=== PATIENT | male | born 1965 | race Caucasian/White ===

== ENCOUNTER 2018-11-20 10:39 | Day surgery (SDC) | payer OTHER ==
[2018-11-20] MEDS ORDERED: Lactated Ringers 1,000 ML IV SCH (10:45)
[2018-11-20] MEDS ORDERED: Sodium Chloride 0.9% 10 ML Syringe FLUSH PRN (10:45)
[2018-11-20] MEDS ORDERED: Propofol 200 MG/20 ML SDV IV ONE (12:00)
[2018-11-20] MEDS ORDERED: Midazolam 1 MG/ML 2 ML SDV IV ONE (12:00)
[2018-11-20] MEDS ORDERED: Propofol 200 MG/20 ML SDV ONE (12:04)
[2018-11-20] MEDS ORDERED: Midazolam 1 MG/ML 2 ML SDV ONE (12:04)
--- NOTE | 2018-11-20 12:06 | PCM.PN ---
- General Info Date of Service: 11/20/18 - Review of Systems Systems Review Comment:: 53-year-old male presents today for surveillance colonoscopy. He has a history of colon polyps last removed 3 years ago. He is medically stable to proceed today. His recent history and physical is reviewed and no significant changes are noted. I have discussed the proposed colonoscopy with the patient. He agrees to proceed accepting risks. - Patient Data Vitals - Most Recent: Last Vital Signs Temp 97.4 F 11/20/18 10:45 Pulse 73 11/20/18 10:45 Resp 20 11/20/18 10:45 BP 140/84 11/20/18 10:45 Pulse Ox 100 11/20/18 10:45 Weight - Most Recent: 78.018 kg Med Orders - Current: Current Medications Lactated Ringer's (Ringers, Lactated) 1,000 mls @ 50 mls/hr IV ASDIRECTED [facility] Last Admin: 11/20/18 11:33 Dose: 50 mls/hr Sodium Chloride (Saline Flush) 10 ml FLUSH Q8HR PRN PRN Reason: keep vein open - Problem List Review Problem List Initiated/Reviewed/Updated: Yes - My Orders Last 24 Hours: My Active Orders 11/19/18 14:26 Resuscitation Status Routine 11/20/18 10:45 Patient to Empty Bladder [RC] ASDIRECTED Peripheral IV Care [RC] . DIRECTED Vital Signs [RC] PER UNIT ROUTINE Lactated Ringers [Ringers, Lactated] 1,000 ml IV ASDIRECTED Sodium Chloride 0.9% [Saline Flush] 10 ml FLUSH Q8HR PRN Peripheral IV Insertion Adult [OM.PC] Routine 11/20/18 12:00 Verify Patient Consent Obtain [RC] ASDIRECTED 11/20/18 Breakfast Nothing Per Oral Diet [DIET] - Assessment Assessment:: History of colon polyps - Plan Plan:: Colonoscopy
--- NOTE | 2018-11-20 12:41 | PCM.OPNOTE ---
- General Post-Op/Procedure Note Date of Surgery/Procedure: 11/20/18 Operative Procedure(s): Colonoscopy with polypectomy Findings: 3 small colon polyps exam otherwise normal Pre Op Diagnosis: History of Colon Polyps Post-Op Diagnosis: Colon Polyps Anesthesia Technique: MAC Primary Surgeon: Emeka Dee Pathology: Colon Polyps Output, Urine Amount: 0 EBL in mLs: 4 Complications: None Condition: Good
[2018-11-20 13:34] VITALS: BP 114/86
--- NOTE | 2018-11-20 17:50 | OR ---
DATE OF SURGERY: 11/20/2018 SURGEON: Emeka Dee MD PREOPERATIVE DIAGNOSIS: History of colon polyps. POSTOPERATIVE DIAGNOSIS: Colon polyps. OPERATION PERFORMED: Colonoscopy with polypectomy. INDICATIONS FOR SURGERY: This 53-year-old male has a history of colon polyps and he comes today for surveillance colonoscopy. FINDINGS: Three small polyps are noted on today's exam. One is in the rectum 12 cm from the anal verge, another is in the cecum, and the third is in the ascending colon. These polyps range in size from 4 to 6 mm in size. They were all sessile in configuration. The remainder of the colon and rectum appear normal. DESCRIPTION OF PROCEDURE: The patient was taken to the operating room. He was given intravenous sedation and with him in the left lateral decubitus position, digital rectal exam was performed showing no rectal masses. The Olympus colonoscope was inserted into the rectum. Retroflexed examination of the rectal canal is performed. The scope was then carefully advanced under direct visualization through the entire length of the colon until the cecum is reached. Cecal acquisition is confirmed by noting the normal internal cecal anatomy including the appendiceal orifice and ileocecal valve. The light was also noted to transilluminate the abdominal wall in the right lower quadrant. After examining the cecum, the scope was slowly withdrawn, sequentially re-examining the colonic segments until the entire colon and rectum had been fully examined. During insertion and withdrawal of the scope, the above-described polyps are identified. At each of these three locations, the polyp was removed grossly in its entirety with the cold biopsy forceps. No sign of any complication was noted at any of these locations and each of the polyps was retrieved and will be submitted for pathology. Once the exam had been completed and with no sign of any complication, the scope was removed and the patient was taken from the operating room in satisfactory condition. ESTIMATED BLOOD LOSS: 4 mL. COMPLICATIONS: None. PROGNOSIS: Good. /[id number]/MODL MTDD
== END 2018-11-20 14:40 | disposition home or self-care (01) ==
LOC: KA.SDS 10:39
PROVIDERS: ATTEND Surgery
DX: Z12.11 Encounter for screening for malignant neoplasm of colon (principal); D12.0 Benign neoplasm of cecum; D12.2 Benign neoplasm of ascending colon; K62.1 Rectal polyp; F17.200 Nicotine dependence, unspecified, uncomplicated; I10 Essential (primary) hypertension; E78.5 Hyperlipidemia, unspecified; Z86.010 Personal history of colon polyps
CPT/HCPCS: 00812; J2250; J2704; J7120

== ENCOUNTER 2019-03-28 16:10 | Emergency (ER) | payer OTHER ==
[2019-03-28 16:20] VITALS: BP 124/74
--- NOTE | 2019-03-28 16:59 | EDM.PDOC ---
ED HPI GENERAL MEDICAL PROBLEM - General Chief Complaint: Bite:Animal, Insect Stated Complaint: REACTING TO WOOD TICK BITE Time Seen by Provider: 03/28/19 16:43 Source of Information: Reports: Patient History Limitations: Reports: No Limitations - History of Present Illness INITIAL COMMENTS - FREE TEXT/NARRATIVE: Patient is a 53-year-old gentleman who presents to the emergency department this afternoon with a complaint of redness on right chest secondary to tick bite 2 days ago. Patient states that he removed the tick with tweezers on Monday, was able to remove tick head, and redness was noticed last night and worsened today. Patient denies shortness of breath, rash anywhere else, tongue edema, or fever. Onset: Gradual Onset Date: 03/26/19 Duration: Day(s):, Getting Worse Location: Reports: Chest Quality: Reports: Ache Severity: Mild Improves with: Reports: None Worsens with: Reports: None Context: Reports: Other (Insect bite) Right Breast Pain Score (Numeric/FACES): 2 - Related Data Allergies Allergy/AdvReac Type Severity Reaction Status Date / Time No Known Drug Allergies Allergy NKDA Verified 03/28/19 16:20 Home Meds: Home Meds Lisinopril [Prinivil] 20 mg PO DAILY 02/12/16 [History] atorvaSTATin Calcium [Atorvastatin Calcium] 20 mg PO DAILY 02/12/16 [History] Doxycycline [Vibramycin] 100 mg PO BID #28 cap 03/28/19 [Rx] Past Medical History - Past Health History Medical/Surgical History: Denies Medical/Surgical History HEENT History: Reports: Impaired Vision Cardiovascular History: Reports: High Cholesterol, Hypertension Gastrointestinal History: Reports: None Musculoskeletal History: Reports: Back Pain, Chronic, Fracture Neurological History: Reports: None Psychiatric History: Reports: None - Infectious Disease History Infectious Disease History: Reports: Chicken Pox - Past Surgical History Cardiovascular Surgical History: Reports: None GI Surgical History: Reports: Appendectomy, Colonoscopy Neurological Surgical History: Reports: Thoracic Spine Musculoskeletal Surgical History: Reports: None Social & Family History - Family History Cardiac: Reports: Other (See Below) Other Cardiac Family History: hypotension Endocrine/Metabolic: Reports: Diabetes, type II - Tobacco Use Smoking Status *Q: Current Every Day Smoker Years of Tobacco use: 32 Packs/Tins Daily: 0.5 - Caffeine Use Caffeine Use: Reports: Coffee, Soda Other Caffeine Use: regular - Recreational Drug Use Recreational Drug Use: No ED ROS GENERAL - Review of Systems Review Of Systems: ROS reveals no pertinent complaints other than HPI. Constitutional: Reports: No Symptoms. Denies: Fever HEENT: Reports: No Symptoms Respiratory: Reports: No Symptoms Cardiovascular: Reports: No Symptoms Endocrine: Reports: No Symptoms GI/Abdominal: Reports: No Symptoms : Reports: No Symptoms Musculoskeletal: Reports: No Symptoms Skin: Reports: Rash, Erythema (Right chest) Neurological: Reports: No Symptoms Psychiatric: Reports: No Symptoms Hematologic/Lymphatic: Reports: No Symptoms Immunologic: Reports: No Symptoms ED EXAM, ANIMAL BITE - Physical Exam Exam: See Below Exam Limited By: No Limitations General Appearance: Alert, WD/WN, No Apparent Distress Eye Exam: Bilateral Eye: Normal Inspection Nose: Normal Inspection Throat/Mouth: Normal Inspection, Normal Lips, Normal Oropharynx, No Airway Compromise. No: Inflammation Head: Atraumatic, Normocephalic Neck: Normal Inspection. No: Lymphadenopathy (L), Lymphadenopathy (R) Respiratory/Chest: No Respiratory Distress, Lungs Clear, Normal Breath Sounds, No Accessory Muscle Use Cardiovascular: Regular Rate, Rhythm, No Murmur Extremities: Normal Inspection Neurological: Alert, Oriented, Normal Cognition Psychiatric: Normal Affect, Normal Mood Skin Exam: Normal Color, Warm/Dry, Rash (At right mid chest, surrounding nipple) Lymphadenopathy: Bilateral: No Adenopathy Lymphatic: No Adenopathy Course - Vital Signs Last Recorded V/S: Last Vital Signs Temp 97.7 F 03/28/19 16:17 Pulse 82 03/28/19 16:17 Resp 14 03/28/19 16:17 BP 124/74 03/28/19 16:17 Pulse Ox 96 03/28/19 16:17 - Re-Assessments/Exams Free Text/Narrative Re-Assessment/Exam: 03/28/19 16:58 Patient afebrile, vital signs stable. Concern for possible Lyme disease. Patient given 100 mg doxycycline twice a day for 14 days. We'll recheck in 2 days. Departure - Departure Time of Disposition: 16:59 Disposition: Home, Self-Care 01 Condition: Good Clinical Impression: Tick bite of chest wall Qualifiers: Encounter type: initial encounter Laterality: right Qualified Code(s): S20.361A - Insect bite (nonvenomous) of right front wall of thorax, initial encounter; W57.XXXA - Bitten or stung by nonvenomous insect and other nonvenomous arthropods, initial encounter - Discharge Information Prescriptions: Doxycycline [Vibramycin] 100 mg PO BID #28 cap Instructions: Tick Bite Information, Adult, [id number] Referrals: Carmen Dallas MD [Primary Care Provider] - Additional Instructions: Follow-up with Dr. Rascon in 24-48 hours for recheck. Return to emergency room sooner if symptoms continue or worsen. Take medication as directed - Assessment/Plan Assessment:: Insect bite Plan: Follow-up with PCP
== END 2019-03-28 17:10 | disposition home or self-care (01) ==
LOC: KA.ED 16:10
DX: S20.361A Insect bite (nonvenomous) of right front wall of thorax, initial encounter (principal); I10 Essential (primary) hypertension; E78.00 Pure hypercholesterolemia, unspecified; F17.210 Nicotine dependence, cigarettes, uncomplicated; Z79.899 Other long term (current) drug therapy; W57.XXXA Bitten or stung by nonvenomous insect and other nonvenomous arthropods, initial encounter
CPT/HCPCS: 99282; 99283

== ENCOUNTER 2021-01-09 18:26 | Emergency (ER) | payer OTHER ==
[2021-01-09 18:43] VITALS: BP 118/81; PULSE 110
[2021-01-09 19:09] LABS: ANION GAP 19.4 mmol/L (5-15); CHLORIDE,CL 99 mmol/L (98-107); SODIUM,NA 134 mmol/L (136-145)
[2021-01-09] MEDS ORDERED: Ketorolac 30 MG/ML SDV IM ONE (19:29)
[2021-01-09] MEDS ORDERED: cefTRIAXone 2 GM Vial IVPUSH ONE (19:30)
[2021-01-09] MEDS ORDERED: Sodium Chloride 0.9% 1,000 ML IV ONE (19:31)
[2021-01-09] MEDS ORDERED: Acetaminophen 500 MG Tab PO ONE (19:40)
[2021-01-09] MEDS ORDERED: Acetaminophen 500 MG Tab ONE (20:01)
[2021-01-09] MEDS ORDERED: Ciprofloxacin 500 MG Tab PO SCH (21:00)
[2021-01-09] MEDS ORDERED: Tamsulosin 0.4 MG Cap.ER PO ONE (21:00)
--- NOTE | 2021-01-09 21:03 | EDM.PDOC ---
ED HPI GENERAL MEDICAL PROBLEM - General Chief Complaint: Genitourinary Problem Stated Complaint: UTI? KIDNEY STONE? Time Seen by Provider: 01/09/21 18:30 Source of Information: Reports: Patient History Limitations: Reports: No Limitations - History of Present Illness INITIAL COMMENTS - FREE TEXT/NARRATIVE: 55-year-old male presents to the emergency room with symptoms of feeling pain with a urinating. Initially started feeling some fatigue and chills after work on . Chills started about 3 PM and he felt that they ended later that night around 1030. Monday and today began experiencing pain with urination. He reports urgency frequency and noticed some blood in his urine today. If he is not trying to urinate he reports no pain with urination he reports his pain is a 7 out of 10. He denies any significant fever or chills but upon arrival his temperature is 100. He denies any abdominal pain. Is any low back pain, perineal, suprapubic or testicular pain. Neuralgia or myalgia complaints. He is not have any nausea or vomiting complaints. He denies increased pain with bowel movement. He reports his oral intake has been poor over the last couple of days. His primary care is Dr. Carmen Rascon. He is otherwise fairly healthy gentleman reports only history of high blood pressure and hypercholesterol. He takes medications for both of these. Onset: Gradual Onset Date: 01/07/21 Duration: Day(s):, Getting Worse, Recurring (With urination) Location: Reports: Pelvis Quality: Reports: Ache, Pressure Severity: Moderate Improves with: Reports: Rest Worsens with: Reports: Other (Worsens with urination) Associated Symptoms: Reports: Fever/Chills, Malaise. Denies: Nausea/Vomiting - Related Data Allergies Allergy/AdvReac Type Severity Reaction Status Date / Time No Known Drug Allergies Allergy NKDA Verified 01/09/21 18:44 Home Meds: Home Meds Lisinopril [Prinivil] 20 mg PO BEDTIME 02/12/16 [History] atorvaSTATin Calcium [Atorvastatin Calcium] 20 mg PO BEDTIME 02/12/16 [History] Past Medical History - Past Health History Medical/Surgical History: Denies Medical/Surgical History HEENT History: Reports: Impaired Vision Cardiovascular History: Reports: High Cholesterol, Hypertension Gastrointestinal History: Reports: None Musculoskeletal History: Reports: Back Pain, Chronic, Fracture Neurological History: Reports: None Psychiatric History: Reports: None - Infectious Disease History Infectious Disease History: Reports: Chicken Pox - Past Surgical History HEENT Surgical History: Reports: Oral Surgery Cardiovascular Surgical History: Reports: None GI Surgical History: Reports: Appendectomy, Colonoscopy Neurological Surgical History: Reports: Thoracic Spine Musculoskeletal Surgical History: Reports: None Social & Family History - Family History Cardiac: Reports: Other (See Below) Other Cardiac Family History: hypotension Endocrine/Metabolic: Reports: Diabetes, type II - Tobacco Use Tobacco Use Status *Q: Current Every Day Tobacco User Years of Tobacco use: 30 Packs/Tins Daily: 0.5 - Caffeine Use Caffeine Use: Reports: Coffee Other Caffeine Use: regular - Recreational Drug Use Recreational Drug Use: No ED ROS GENERAL - Review of Systems Review Of Systems: See Below Constitutional: Reports: Fever, Chills, Malaise, Fatigue HEENT: Reports: No Symptoms Respiratory: Reports: No Symptoms Cardiovascular: Reports: No Symptoms Endocrine: Reports: No Symptoms GI/Abdominal: Denies: Abdominal Pain, Constipation, Diarrhea, Distension, Nausea, Vomiting : Reports: Dysuria, Frequency, Hematuria, Pain, Urgency. Denies: Discharge, Flank Pain Musculoskeletal: Reports: No Symptoms Skin: Reports: No Symptoms Neurological: Reports: No Symptoms Psychiatric: Reports: No Symptoms Hematologic/Lymphatic: Reports: No Symptoms Immunologic: Reports: No Symptoms ED EXAM, GI/ABD - Physical Exam Exam: See Below Exam Limited By: No Limitations General Appearance: Alert, WD/WN, No Apparent Distress Eyes: Bilateral: EOMI Ears: Hearing Grossly Normal Nose: Normal Inspection Throat/Mouth: Normal Inspection, Normal Voice, No Airway Compromise Head: Atraumatic, Normocephalic Neck: Normal Inspection, Supple Respiratory/Chest: No Respiratory Distress, Lungs Clear, Normal Breath Sounds Cardiovascular: Normal Peripheral Pulses, Regular Rate, Rhythm GI/Abdominal Exam: Normal Bowel Sounds, Soft, Non-Tender, No Organomegaly, No Distention (Male) Exam: Normal Inspection, Circumcised, Suprapubic Fullness. No: Penile Lesions, Rash, Scrotal Swelling, Scrotum Tenderness (L), Scrotum Tenderness (R), Testicular Mass, Testicular Tenderness (L), Testicular Tenderness (R), Urethral Discharge Rectal (Males) Exam: Tenderness (Prostate). No: Decreased Rectal Tone, Hemorrhoids, Perirectal Abscess Back Exam: Normal Inspection, Full Range of Motion Extremities: Normal Inspection, Normal Range of Motion, Non-Tender, No Pedal Edema, Normal Capillary Refill Neurological: Alert, Oriented, CN II-XII Intact, No Motor/Sensory Deficits Psychiatric: Normal Affect, Normal Mood Skin Exam: Warm, Dry, Intact, Normal Color, No Rash Course - Vital Signs Last Recorded V/S: Last Vital Signs Temp 99 F 01/09/21 20:30 Pulse 110 H 01/09/21 18:40 Resp 18 01/09/21 18:40 BP 118/81 01/09/21 18:40 Pulse Ox 95 01/09/21 18:40 - Orders/Labs/Meds Orders: Active Orders 24 hr Category Date Time Status Bladder Scan [RC] ASDIRECTED Care 01/09/21 19:33 Active CULTURE URINE [RM] Stat Lab 01/09/21 19:12 Ordered Ciprofloxacin [Ciprofloxacin HCl] Med 01/09/21 21:00 Active 1,500 mg PO ASDIRECTED Medication Orders Ciprofloxacin (Ciprofloxacin 500 Mg Tab) 1,500 mg PO ASDIRECTED [facility] Last Admin: 01/09/21 21:06 Dose: Not Given Documented by: HARRY Labs: Laboratory Tests 01/09/21 01/09/21 01/09/21 Range/Units 18:30 18:40 18:40 WBC 9.95 (5.00-10.00) 10^3/uL RBC 4.61 (4.50-6.00) 10^6/uL Hgb 15.5 (13.0-17.0) g/dL Hct 44.1 (40.0-52.0) % MCV 95.7 H (82.0-92.0) fL MCH 33.6 H (27.0-31.0) pg MCHC 35.1 (32.0-36.0) g/dL RDW 12.7 (11.5-14.5) % Plt Count 204 (150-400) 10^3/uL MPV 9.5 (7.4-10.4) fL Immature Gran % (Auto) 0.3 (0.0-5.0) % Neut % (Auto) 76.7 H (50.0-70.0) % Lymph % (Auto) 10.6 L (20.0-40.0) % Isabela % (Auto) 11.5 H (2.0-8.0) % Eos % (Auto) 0.8 L (1.0-3.0) % Baso % (Auto) 0.1 (0.0-1.0) % Neut # (Auto) 7.64 H (2.50-7.00) 10^3/uL Lymph # (Auto) 1.05 (1.00-4.00) 10^3/uL Isabela # (Auto) 1.14 H (0.10-0.80) 10^3/uL Eos # (Auto) 0.08 L (0.10-0.30) 10^3/uL Baso # (Auto) 0.01 (0.00-0.10) 10^3/uL Immature Gran # (Auto) 0.03 (0.00-0.50) 10^3/uL Sodium 134 L (136-145) mmol/L Potassium 3.9 (3.5-5.1) mmol/L Chloride 99 (98-107) mmol/L Carbon Dioxide 19.5 L (21.0-32.0) mmol/L Anion Gap 19.4 H (5-15) mmol/L BUN 9 (7-18) mg/dL Creatinine 0.69 (0.51-1.17) mg/dL Est Cr Clr Drug Dosing 134.22 mL/min Estimated GFR (MDRD) > 60 mL/min Glucose 113 (70-140) mg/dL Calcium 8.9 (8.7-10.3) mg/dL Total Bilirubin 1.1 H (0.2-1.0) mg/dL AST 41 H (15-37) U/L ALT 74 H (14-63) U/L Alkaline Phosphatase 173 H (46-116) U/L Total Protein 7.3 (6.4-8.2) g/dL Albumin 3.36 L (3.40-5.00) g/dL Specimen Type Urincc Urine Color Dark yellow H (YELLOW) Urine Appearance Clear (CLEAR) Urine pH 5.5 (5.0-9.0) Ur Specific [place] >= 1.030 (1.005-1.030) Urine Protein >=300 H (NEGATIVE) mg/dL Urine Glucose (UA) Negative (NEGATIVE) mg/dL Urine Ketones 15 H (NEGATIVE) mg/dL Urine Occult Blood Large H (NEGATIVE) Urine Nitrite Negative (NEGATIVE) Urine Bilirubin Moderate H (NEGATIVE) Urine Urobilinogen 2.0 H (0.2-1.0) E.U./dL Ur Leukocyte Esterase Trace H (NEGATIVE) Urine RBC Packed (0-5) /HPF Urine WBC >100 H (0-5) /HPF Ur Epithelial Cells Rare /LPF Urine Bacteria Moderate H (NONE TO FEW) /HPF Meds: Medications Generic Name Dose Route Start Last Admin Trade Name Freq PRN Reason Stop Dose Admin Ciprofloxacin 1,500 mg 01/09/21 21:00 01/09/21 21:06 Ciprofloxacin 500 Mg Tab PO Not Given ASDIRECTED [facility]ANCI Discontinued Medications Generic Name Dose Route Start Last Admin Trade Name Freq PRN Reason Stop Dose Admin Acetaminophen 1,000 mg 01/09/21 19:40 01/09/21 20:00 Acetaminophen 500 Mg Tab PO 01/09/21 19:41 1,000 mg ONETIME ONE Administration Acetaminophen Confirm 01/09/21 20:01 01/09/21 20:06 Acetaminophen 500 Mg Tab Administered 01/09/21 20:02 Not Given Dose 500 mg .ROUTE .STK-MED ONE Ceftriaxone Sodium 2 gm 01/09/21 19:30 01/09/21 20:02 Ceftriaxone 2 Gm Vial IVPUSH 01/09/21 19:31 2 gm ONETIME ONE Administration Sodium Chloride 1,000 mls @ 1,000 mls/hr 01/09/21 19:31 01/09/21 19:48 Normal Saline IV 01/09/21 20:30 1,000 mls/hr .BOLUS ONE Administration Ketorolac Tromethamine 60 mg 01/09/21 19:29 01/09/21 19:49 Ketorolac 30 Mg/Ml Sdv IM 01/09/21 19:30 60 mg ONETIME ONE Administration Tamsulosin HCl 1.2 mg 01/09/21 21:00 01/09/21 21:06 Tamsulosin 0.4 Mg Cap.Er PO 01/09/21 21:01 Not Given ONETIME ONE - Re-Assessments/Exams Free Text/Narrative Re-Assessment/Exam: 01/09/21 21:29 Patient was given 1 L IV fluids, 1 g Rocephin, 30 IM of Toradol. Patient felt better after completion of fluids and medication of Toradol. Departure - Departure Time of Disposition: 21:29 Disposition: Home, Self-Care 01 Condition: Good Clinical Impression: Prostatitis - Discharge Information Instructions: Prostatitis Referrals: Carmen Dallas MD [Primary Care Provider] - Forms: ED Department Discharge Care Plan Goals: 1. Cipro 500 mg 1 p.o. twice daily for 21 days 2. Tamsulosin 0.4mg daily 30 minutes after a meal. 3. Ibuprofen 800 mg 3 times daily with meals for 10 days 4. Follow-up Dr. Carmen Rascon next week. 5. Oral hydration is encouraged. Sepsis Event Note (ED) - Evaluation Sepsis Screening Result: No Definite Risk - Focused Exam Vital Signs: Vital Signs Temp Temp Pulse Resp BP Pulse Ox 01/09/21 20:30 99 F 01/09/21 20:00 100 F 01/09/21 18:40 100.0 F 110 H 18 118/81 95 - My Orders Last 24 Hours: My Active Orders 01/09/21 19:12 CULTURE URINE [RM] Stat 01/09/21 19:33 Bladder Scan [RC] ASDIRECTED 01/09/21 21:00 Ciprofloxacin [Ciprofloxacin HCl] 1,500 mg PO ASDIRECTED - Assessment/Plan Last 24 Hours: My Active Orders 01/09/21 19:12 CULTURE URINE [RM] Stat 01/09/21 19:33 Bladder Scan [RC] ASDIRECTED 01/09/21 21:00 Ciprofloxacin [Ciprofloxacin HCl] 1,500 mg PO ASDIRECTED Assessment:: Acute prostatitis Plan: 1. Cipro 500 mg 1 p.o. twice daily for 21 days 2. Tamsulosin 0.4mg daily 30 minutes after a meal. 3. Ibuprofen 800 mg 3 times daily with meals for 10 days 4. Follow-up Dr. Carmen Rascon next week. 5. Oral hydration is encouraged.
== END 2021-01-09 21:20 | disposition home or self-care (01) ==
LOC: KA.ED 18:26
DX: N41.9 Inflammatory disease of prostate, unspecified (principal); E78.00 Pure hypercholesterolemia, unspecified; I10 Essential (primary) hypertension; Z79.899 Other long term (current) drug therapy; Z72.0 Tobacco use
CPT/HCPCS: 36415; 51798; 80053; 81001; 85025; 87086; 87186; 96372; 96374; 99283-25; 99284; A9270-GY; J0696; J1885; J7030

== ENCOUNTER 2022-01-11 10:05 | Day surgery (SDC) | payer OTHER ==
[2022-01-11] MEDS ORDERED: Sodium Chloride 0.9% 10 ML Syringe FLUSH PRN (10:15)
[2022-01-11] MEDS: Lactated Ringers 1,000 ML IV SCH (10:45)
[2022-01-11] MEDS ORDERED: Midazolam 1 MG/ML 2 ML SDV IV ONE (11:00)
[2022-01-11] MEDS ORDERED: Propofol 200 MG/20 ML SDV IV ONE (11:00)
[2022-01-11 13:02] VITALS: BP 109/75; PULSE 65
== END 2022-01-11 13:45 | disposition home or self-care (01) ==
LOC: KA.SDS 10:05
PROVIDERS: ATTEND Surgery
DX: Z12.11 Encounter for screening for malignant neoplasm of colon (principal); D12.0 Benign neoplasm of cecum; D12.4 Benign neoplasm of descending colon; H93.19 Tinnitus, unspecified ear; F17.210 Nicotine dependence, cigarettes, uncomplicated; E78.5 Hyperlipidemia, unspecified; I10 Essential (primary) hypertension; Z79.899 Other long term (current) drug therapy; Z90.49 Acquired absence of other specified parts of digestive tract; Z98.890 Other specified postprocedural states
CPT/HCPCS: 00812; J2250; J2704; J7120

== ENCOUNTER 2023-09-12 00:22 | Emergency (ER) | payer OTHER ==
[2023-09-12] MEDS ORDERED: Acetaminophen 500 MG Tab PO ONE (00:36)
[2023-09-12] MEDS ORDERED: Ketorolac 30 MG/ML SDV IM ONE (00:36)
[2023-09-12 01:02] LABS: BASOPHILS ABSOLUTE AUTO 0.01 10^3/uL (0.00-0.10); BASOPHILS PERCENT AUTO 0.2 % (0.0-1.0); EOSINOPHILS ABSOLUTE AUTO 0.08 10^3/uL (0.10-0.30); HEMATOCRIT 44.3 % (40.0-52.0); HEMOGLOBIN 15.1 g/dL (13.0-17.0); IMMATURE GRAN ABSOLUTE AUTO 0.02 10^3/uL (0.00-0.50); IMMATURE GRAN PERCENT AUTO 0.5 % (0.0-5.0); LYMPHOCYTES ABSOLUTE AUTO 0.24 10^3/uL (1.00-4.00); LYMPHOCYTES PERCENT AUTO 5.9 % (20.0-40.0); MEAN CORPUSCULAR HGB CONC 34.1 g/dL (32.0-36.0); MEAN CORPUSCULAR VOLUME 96.9 fL (82.0-92.0); MEAN PLATELET VOLUME 9.5 fL (7.4-10.4); MONOCYTES ABSOLUTE AUTO 0.57 10^3/uL (0.10-0.80); NEUTROPHILS ABSOLUTE AUTO 3.15 10^3/uL (2.50-7.00); NEUTROPHILS PERCENT AUTO 77.4 % (50.0-70.0); PLATELET COUNT,PLT 227 10^3/uL (150-400); RED BLOOD CELL COUNT 4.57 10^6/uL (4.50-6.00); RED CELL DISTRIBUTION WIDTH 12.8 % (11.5-14.5); WHITE BLOOD CELL COUNT,WBC 4.07 10^3/uL (5.00-10.00)
[2023-09-12 01:15] LABS: ALBUMIN 3.66 g/dL (3.40-5.00); ANION GAP 10.4 mmol/L (5-15); BILIRUBIN TOTAL 0.5 mg/dL (0.2-1.0); CALCIUM 8.8 mg/dL (8.7-10.3); CARBON DIOXIDE,CO2 28.8 mmol/L (21.0-32.0); CREATININE 0.67 mg/dL (0.51-1.17); EST CRCL DRUG DOSING (CG) 129.48 mL/min; POTASSIUM,K 4.2 mmol/L (3.5-5.1); PROTEIN TOTAL,TP 6.7 g/dL (6.4-8.2)
[2023-09-12 01:27] LABS: INFLUENZA A NAA NEGATIVE (NEGATIVE); INFLUENZA B NAA NEGATIVE (NEGATIVE); RESPIRATORY SYNCYTIAL VIR NAA NEGATIVE (NEGATIVE)
[2023-09-12 01:28] LABS: CORONAVIRUS COVID-19 NAA POSITIVE (NEGATIVE)
[2023-09-12 01:46] VITALS: BP 118/74; PULSE 95
== END 2023-09-12 01:56 | disposition home or self-care (01) ==
LOC: KA.ED 00:22
DX: U07.1 COVID-19 (principal); M54.50 Low back pain, unspecified; M25.551 Pain in right hip; M25.552 Pain in left hip; G89.29 Other chronic pain; J32.1 Chronic frontal sinusitis; I10 Essential (primary) hypertension; E78.00 Pure hypercholesterolemia, unspecified; Z90.49 Acquired absence of other specified parts of digestive tract
CPT/HCPCS: 0241U; 36415; 71046; 80053; 85025; 96372; 99283; 99284; A9270-GY; J1885

== ENCOUNTER 2025-08-19 10:59 | Day surgery (SDC) | payer OTHER ==
[2025-08-19] MEDS ORDERED: Sodium Chloride 0.9% 10 ML Syringe FLUSH PRN (11:00)
[2025-08-19] MEDS: Lactated Ringers 1,000 ML IV SCH (11:11)
[2025-08-19] MEDS ORDERED: Propofol 200 MG/20 ML SDV ONE (11:51)
[2025-08-19] MEDS ORDERED: Midazolam 1 MG/ML 2 ML SDV ONE (11:51)
[2025-08-19] MEDS ORDERED: Lactated Ringers 1,000 ML ONE (13:13)
[2025-08-19 16:03] VITALS: BP 137/71; PULSE 56
== END 2025-08-19 15:02 | disposition home or self-care (01) ==
LOC: KA.SDS 10:59
PROVIDERS: ATTEND Surgery
DX: Z12.11 Encounter for screening for malignant neoplasm of colon (principal); D12.3 Benign neoplasm of transverse colon; Z86.0100 Personal history of colon polyps, unspecified; F17.200 Nicotine dependence, unspecified, uncomplicated
CPT/HCPCS: J2250; J2704; J7120